=== PATIENT | female | born 1945 | race Caucasian/White ===

== ENCOUNTER 2017-12-10 20:03 | Emergency (ER) | payer OTHER ==
[2017-12-10 20:58] LABS: BASOPHIL % 0.7 % (0-2); RED CELL DISTRIBUTION WIDTH 14.5 % (11.5-14.5)
[2017-12-10 21:00] LABS: PLATELET COUNT 424 x10^3mcL (130-400)
[2017-12-10 21:05] LABS: CALCIUM 8.8 mg/dL (8.5-10.1); CARBON DIOXIDE 28.5 mmol/L (21-32); CHLORIDE SERUM 101 mmol/L (98-107); CREATININE SERUM 0.6 mg/dL (0.6-1.0); GFR1 > 60 mL/min; GLUCOSE SERUM 101 mg/dL (74-106); POTASSIUM SERUM 3.3 mmol/L (3.5-5.1); SODIUM SERUM 134 mmol/L (136-145)
[2017-12-10 21:09] LABS: ALKALINE PHOSPHATASE 206 U/L (46-116); ALT/SGPT 12 U/L (14-59); AMYLASE 38 U/L (25-115); AST/SGOT 38 U/L (15-37); LIPASE 243 IU/L (73-393); TOTAL PROTEIN, SERUM 6.4 g/dL (6.4-8.2)
[2017-12-10 21:10] LABS: ALBUMIN 2.2 g/dL (3.4-5.0)
[2017-12-10 23:59] VITALS: BP 120/72
== END 2017-12-10 23:59 | disposition home or self-care (01) ==
LOC: ED 20:03
PROVIDERS: Emergency Medicine
DX: M54.5 Low back pain (principal); K70.31 Alcoholic cirrhosis of liver with ascites; Z76.0 Encounter for issue of repeat prescription; Z86.59 Personal history of other mental and behavioral disorders
CPT/HCPCS: 36415; Q0092

== ENCOUNTER 2018-04-19 19:46 | Emergency (ER) | payer OTHER ==
[~2018-04-19] VITALS: Ht 165.1 cm; Wt 52.2 kg
[2018-04-19 20:53] LABS: UA SPECIFIC GRAVITY 1.015 (1.005-1.035); microscopic required? YES; urine erythrocyte NEGATIVE (NEGATIVE)
[2018-04-19 21:00] LABS: BASOPHIL % 0.3 % (0-2); PLATELET COUNT 206 x10^3mcL (130-400); RED CELL DISTRIBUTION WIDTH 14.2 % (11.5-14.5)
[2018-04-19 21:11] LABS: CALCIUM 10.6 mg/dL (8.5-10.1); CARBON DIOXIDE 32.3 mmol/L (21-32); CHLORIDE SERUM 101 mmol/L (98-107); CREATININE SERUM 0.8 mg/dL (0.6-1.0); GFR1 > 60 mL/min; GLUCOSE SERUM 139 mg/dL (74-106); SODIUM SERUM 139 mmol/L (136-145)
[2018-04-19 21:17] LABS: ALBUMIN 3.8 g/dL (3.4-5.0); ALKALINE PHOSPHATASE 192 U/L (46-116); ALT/SGPT 59 U/L (14-59); AMYLASE 58 U/L (25-115); AST/SGOT 80 U/L (15-37); BILIRUBIN TOTAL 1.23 mg/dL (0.20-1.00); LIPASE 275 IU/L (73-393); TOTAL PROTEIN, SERUM 7.9 g/dL (6.4-8.2)
[2018-04-19 23:22] VITALS: BP 105/73
== END 2018-04-19 23:22 | disposition home or self-care (01) ==
LOC: ED 19:46
PROVIDERS: Emergency Medicine
DX: N39.0 Urinary tract infection, site not specified (principal); K74.60 Unspecified cirrhosis of liver; K80.80 Other cholelithiasis without obstruction; K57.90 Diverticulosis of intestine, part unspecified, without perforation or abscess without bleeding
CPT/HCPCS: J2405; J2543; J3490; J7030; Q9967

== ENCOUNTER 2018-04-20 18:17 | Inpatient (IN) | payer OTHER ==
[~2018-04-20] VITALS: Ht 165.1 cm; Wt 51.9 kg
[2018-04-20 20:14] LABS: BASOPHIL % 0.3 % (0-2); PLATELET COUNT 207 x10^3mcL (130-400)
[2018-04-20 20:15] LABS: RED CELL DISTRIBUTION WIDTH 15.2 % (11.5-14.5)
[2018-04-20 21:24] LABS: CALCIUM 10.3 mg/dL (8.5-10.1); CARBON DIOXIDE 31.4 mmol/L (21-32); CHLORIDE SERUM 100 mmol/L (98-107); CREATININE SERUM 0.9 mg/dL (0.6-1.0); GFR1 > 60 mL/min; GLUCOSE SERUM 136 mg/dL (74-106); POTASSIUM SERUM 3.9 mmol/L (3.5-5.1); SODIUM SERUM 137 mmol/L (136-145)
[2018-04-20 21:36] LABS: ALBUMIN 3.8 g/dL (3.4-5.0); ALKALINE PHOSPHATASE 228 U/L (46-116); ALT/SGPT 106 U/L (14-59); AMYLASE 58 U/L (25-115); AST/SGOT 107 U/L (15-37); BILIRUBIN TOTAL 2.39 mg/dL (0.20-1.00); CHOLESTEROL 188 mg/dL (<200); LIPASE 273 IU/L (73-393); MAGNESIUM 1.8 mg/dL (1.8-2.4); T4(THYROXINE) 8.8 ug/dL (4.7-13.3); TOTAL PROTEIN, SERUM 7.9 g/dL (6.4-8.2)
[2018-04-20 21:37] LABS: HDL CHOLESTEROL 85 mg/dL (40-60)
[2018-04-20 22:41] LABS: AMPHETAMINE QUAL UR NONE DETECTED (See below)
[2018-04-20 22:59] LABS: microscopic required? YES; urine erythrocyte NEGATIVE (NEGATIVE)
[2018-04-20 23:53] VITALS: BP 119/59
[2018-04-20 23:56] VITALS: Ht 165.1 cm; Wt 51.9 kg
[2018-04-21 05:35] VITALS: BP 94/59
[2018-04-21 07:41] LABS: BILIRUBIN TOTAL 2.1 mg/dL (0.20-1.00); CALCIUM 9.5 mg/dL (8.5-10.1); CARBON DIOXIDE 25.6 mmol/L (21-32); MAGNESIUM 1.6 mg/dL (1.8-2.4); PHOSPHOROUS 3.5 mg/dL (2.5-4.9); POTASSIUM SERUM 3.5 mmol/L (3.5-5.1); TOTAL PROTEIN, SERUM 6.3 g/dL (6.4-8.2)
[2018-04-21 07:43] LABS: ALBUMIN 2.8 g/dL (3.4-5.0)
[2018-04-21 07:56] LABS: BASOPHIL % 0.7 % (0-2); PLATELET COUNT 175 x10^3mcL (130-400); RED CELL DISTRIBUTION WIDTH 15.1 % (11.5-14.5)
[2018-04-21 09:44] VITALS: BP 94/48
[2018-04-21 17:20] VITALS: BP 104/64
[2018-04-21 20:32] VITALS: BP 115/68
[2018-04-22 05:45] VITALS: BP 112/68
[2018-04-22 06:16] LABS: BASOPHIL % 0.8 % (0-2); PLATELET COUNT 177 x10^3mcL (130-400)
[2018-04-22 06:36] LABS: CALCIUM 9.5 mg/dL (8.5-10.1); CREATININE SERUM 1.2 mg/dL (0.6-1.0); MAGNESIUM 1.5 mg/dL (1.8-2.4); PHOSPHOROUS 3.8 mg/dL (2.5-4.9); POTASSIUM SERUM 3.6 mmol/L (3.5-5.1)
[2018-04-22 07:36] LABS: RED CELL DISTRIBUTION WIDTH 15.5 % (11.5-14.5)
[2018-04-22 10:16] VITALS: BP 93/64
[2018-04-22 17:07] VITALS: BP 123/69
[2018-04-22 20:53] VITALS: BP 103/67
[2018-04-23 06:11] VITALS: BP 113/50
[2018-04-23 07:32] LABS: MAGNESIUM 1.8 mg/dL (1.8-2.4); PHOSPHOROUS 3.3 mg/dL (2.5-4.9)
[2018-04-23 07:34] LABS: BASOPHIL % 1.2 % (0-2); PLATELET COUNT 153 x10^3mcL (130-400)
[2018-04-23 08:01] LABS: ALKALINE PHOSPHATASE 170 U/L (46-116); ALT/SGPT 45 U/L (14-59); AMYLASE 39 U/L (25-115); AST/SGOT 48 U/L (15-37); BILIRUBIN TOTAL 1.6 mg/dL (0.20-1.00); CALCIUM 9.4 mg/dL (8.5-10.1); CARBON DIOXIDE 27.8 mmol/L (21-32); CHLORIDE SERUM 105 mmol/L (98-107); CREATININE SERUM 0.9 mg/dL (0.6-1.0); GFR1 > 60 mL/min; GLUCOSE SERUM 74 mg/dL (74-106); LIPASE 108 IU/L (73-393); POTASSIUM SERUM 3.3 mmol/L (3.5-5.1); SODIUM SERUM 140 mmol/L (136-145); TOTAL PROTEIN, SERUM 5.4 g/dL (6.4-8.2)
[2018-04-23 08:02] LABS: ALBUMIN 2.5 g/dL (3.4-5.0)
[2018-04-23 09:45] VITALS: BP 108/61
[2018-04-23] MEDS ORDERED: TYL325 PO (13:34)
[2018-04-23] MEDS ORDERED: ZOS3PM IV (13:34)
[2018-04-23] MEDS ORDERED: APAP/HYDROCODON1 T13 PO (13:34)
[2018-04-23] MEDS ORDERED: BD LACTINEX1.4 MG PO (13:34)
[2018-04-23] MEDS ORDERED: ZOFI IV (13:36)
[2018-04-23] MEDS ORDERED: COL100 PO (13:36)
[2018-04-23 13:39] VITALS: BP 108/61
== END 2018-04-23 16:00 | disposition short-term general hospital (02) | DRG 444 ==
LOC: ED 18:17 → MU 22:00
PROVIDERS: Emergency Medicine; Family Medicine; Internal Medicine
PROC: 0FJD8ZZ Inspection of Pancreatic Duct, Via Natural or Artificial Opening Endoscopic (ICD-10-PCS; principal; 2018-04-22 07:30)
PROC: 0FJB8ZZ Inspection of Hepatobiliary Duct, Via Natural or Artificial Opening Endoscopic (ICD-10-PCS; 2018-04-22 07:30)
DX: K80.42 Calculus of bile duct with acute cholecystitis without obstruction (principal); E43 Unspecified severe protein-calorie malnutrition; N39.0 Urinary tract infection, site not specified; Z68.1 Body mass index [BMI] 19.9 or less, adult; K70.30 Alcoholic cirrhosis of liver without ascites; K29.70 Gastritis, unspecified, without bleeding; E02 Subclinical iodine-deficiency hypothyroidism; F17.210 Nicotine dependence, cigarettes, uncomplicated
CPT/HCPCS: 43260; 49900; 82962; 99406; C1769; G0480; J0295; J1170; J1610; J1885; J2543; J2704; J3475; J3490; J7030; J7120; Q0092; Q9967